=== PATIENT | female | born 1985 | race African-American/Black ===

== ENCOUNTER 2025-05-28 16:19 | Emergency (ER) | payer SELFPAY ==
[~2025-05-28] VITALS: Ht 172.7 cm; Wt 82.0 kg
[2025-05-28 16:46] VITALS: O2SAT 100
[2025-05-28 18:20] LABS: BASOPHILS % 1.1 % (0.0-2.0); EOSINOPHILS % 10.0 % (0.0-5.0); HEMATOCRIT. 35.2 % (36.0-48.0); HEMOGLOBIN. 11.9 g/dL (12.0-16.0); LYMPHOCYTES % 37.2 % (20.0-50.0); MEAN PLATELET VOLUME 9.3 fl (7.4-10.4); MONOCYTES % 8.2 % (2.0-8.0); NEUTROPHILS % 43.5 % (40.0-76.0); PLATELET 159 x1000/uL (130-400); RED BLOOD CELL COUNT 3.65 mill/uL (4.2-5.4); RED CELL DISTRIBUTION WIDTH 15.7 % (11.6-14.6)
[2025-05-28] MEDS: ONDANSETRON HCL 4MG/2ML INJ IV ONE ×3 (18:27→23:00)
[2025-05-28] MEDS: MORPHINE SULFATE 4 MG/ML INJ (FOR IV/IM USE) IV ONE ×3 (18:27→23:00)
[2025-05-28] MEDS: SODIUM CHLORIDE 0.9% 1,000 ML IV ONE (18:27)
[2025-05-28 18:30] VITALS: TEMP 36.7
[2025-05-28 18:33] LABS: INR 1.0
[2025-05-28 18:35] LABS: CREATININE 0.7 mg/dL (0.6-1.0); TROPONIN I HIGH SENSITIVITY < 4 ng/L (3.0-34); UREA NITROGEN BLOOD 11 mg/dL (9-23)
[2025-05-28 18:37] LABS: ASPARTATE AMINOTRANSFERASE 26 IU/L (<34); BILIRUBIN DIRECT 0.1 mg/dL (<=3.0); BILIRUBIN TOTAL 0.4 mg/dL (0.1-1.0); PROTEIN TOTAL 7.3 g/dL (6.0-8.3)
[2025-05-28 18:49] LABS: HCG SCREEN NEGATIVE
[2025-05-28 22:57] VITALS: O2SAT 100
[2025-05-28 23:00] VITALS: BP 141/87; PULSE 95; RESP 13
[2025-05-28] MEDS ORDERED: IOHEXOL-350 100 ML BOTTLE ONE (23:14)
== END 2025-05-28 23:31 | disposition short-term general hospital (02) ==
LOC: ER 16:19 → CMPBEDREQ 05-29 08:02
DX: S12.600A Unspecified displaced fracture of seventh cervical vertebra, initial encounter for closed fracture (principal); R06.02 Shortness of breath; M54.6 Pain in thoracic spine; M54.2 Cervicalgia; R20.2 Paresthesia of skin; Z98.890 Other specified postprocedural states; Z98.1 Arthrodesis status; Z88.8 Allergy status to other drugs, medicaments and biological substances; W18.2XXA Fall in (into) shower or empty bathtub, initial encounter; Y93.E1 Activity, personal bathing and showering; Y92.89 Other specified places as the place of occurrence of the external cause; Y99.8 Other external cause status
CPT/HCPCS: 80076; 80048; 80320; 84703; 83880; 85025; 85610; 85730; 86850; 86900; 86901; 84484; 36415; 71045; 70496; 70498; 70450; 72125; 72128; 72131; 93005; 96361; 96374; 96375; 96376; 99291; Q9967; J2405; J2270; J7030; Z7610; G0480

== ENCOUNTER 2025-06-14 18:24 | Emergency (ER) | payer SELFPAY ==
[~2025-06-14] VITALS: Ht 167.6 cm; Wt 73.0 kg
[2025-06-14 18:28] VITALS: O2SAT 100
[2025-06-14] MEDS: EPINEPHRINE 1:1000 1 MG/ML AMP IM ONE (18:41)
[2025-06-14] MEDS: DEXAMETHASONE 10 MG/ML VIAL IV ONE (18:41)
[2025-06-14] MEDS: DIPHENHYDRAMINE 50MG/ML VIAL IV ONE (18:41)
[2025-06-14 19:37] LABS: BASOPHILS % 0.8 % (0.0-2.0); EOSINOPHILS % 3.8 % (0.0-5.0); HEMATOCRIT. 37.4 % (36.0-48.0); HEMOGLOBIN. 12.7 g/dL (12.0-16.0); LYMPHOCYTES % 35.2 % (20.0-50.0); MEAN PLATELET VOLUME 8.6 fl (7.4-10.4); MONOCYTES % 9.4 % (2.0-8.0); NEUTROPHILS % 50.8 % (40.0-76.0); PLATELET 211 x1000/uL (130-400); RED BLOOD CELL COUNT 3.95 mill/uL (4.2-5.4); RED CELL DISTRIBUTION WIDTH 15.5 % (11.6-14.6)
[2025-06-14 19:47] LABS: HCG SCREEN NEGATIVE
[2025-06-14 19:50] LABS: CREATININE 0.7 mg/dL (0.6-1.0); PROTEIN TOTAL 7.6 g/dL (6.0-8.3); UREA NITROGEN BLOOD 16 mg/dL (9-23)
[2025-06-14 19:52] LABS: ASPARTATE AMINOTRANSFERASE 30 IU/L (<34); BILIRUBIN DIRECT < 0.1 mg/dL (<=3.0); BILIRUBIN TOTAL 0.4 mg/dL (0.1-1.0)
[2025-06-14] MEDS ORDERED: P50 MT (22:23)
[2025-06-14] MEDS ORDERED: EPIN0.3P3 IM (22:23)
[2025-06-14 22:32] VITALS: BP 124/87; PULSE 75; RESP 16; TEMP 37.1; O2SAT 100
== END 2025-06-14 22:45 | disposition home or self-care (01) ==
LOC: ER 18:24 → CMPBEDREQ 22:55
DX: T78.40XA Allergy, unspecified, initial encounter (principal); Z79.899 Other long term (current) drug therapy; Z88.8 Allergy status to other drugs, medicaments and biological substances; X58.XXXA Exposure to other specified factors, initial encounter
CPT/HCPCS: 80076; 80048; 84703; 83735; 85025; 36415; 96372; 96374; 96375; 99291; J1100; J1200; J3490; Z7610